=== PATIENT | female | born 1970 | race Asian ===

== ENCOUNTER 2016-04-28 23:50 | Emergency (ER) | END 2016-04-29 03:00 | disposition home or self-care (01) | DX: G47.00 Insomnia, unspecified (principal); Z85.3 Personal history of malignant neoplasm of breast ==

== ENCOUNTER 2016-07-22 16:48 | Emergency (ER) | payer OTHER ==
[~2016-07-22] VITALS: Ht 165.1 cm; Wt 70.5 kg
[~2016-07-22 16:48] MED LIST: BEN50 PO
[2016-07-22 16:49] VITALS: Ht 165.1 cm; Wt 70.5 kg
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
[2016-07-22] MEDS ORDERED: ZOLP5TAB7 PO (18:31)
[2016-07-22] MEDS ORDERED: MULT-853 PO (18:36)
[2016-07-22 20:10] VITALS: BP 134/78; PULSE 80; RESP 17
== END 2016-07-22 21:25 | disposition home or self-care (01) ==
LOC: FTE 16:48 → E/R 21:25
DX: Z04.41 Encounter for examination and observation following alleged adult rape (principal); Z85.3 Personal history of malignant neoplasm of breast
CPT/HCPCS: 99283

== ENCOUNTER 2016-11-08 06:55 | Emergency (ER) | END 2016-11-08 11:49 | disposition home or self-care (01) | DX: T74.21XA Adult sexual abuse, confirmed, initial encounter (principal); Z85.3 Personal history of malignant neoplasm of breast | CPT/HCPCS: J0696; Z7502; Z7610 ==